=== PATIENT | male | born 1995 | race African-American/Black ===

== ENCOUNTER 2021-07-15 03:20 | Emergency (ER) | payer MEDICAID ==
[~2021-07-15] VITALS: Ht 182.9 cm; Wt 86.2 kg
--- NOTE | 2021-07-15 03:40 | NUR ---
BIB SELF C/O R SHOULDER PAIN S/P SYNCOPAL EPISODE IN AN ELEVATOR. WAS WOKEN UP BY EQUALIZING SAW OPERATOR AND WAS GIVEN A BANANA TO EAT THEN RAN TO THE ER AND STATES HE NOW HAS GENERALIZED ABD PAIN AND N/V. R SHOULDER PAIN IS 8/10 WITH MOVEMENT AND IMPROVES WITH REST TO 4/10. DENIES HITTING HIS HEAD. NO EXTERNAL TRAUMA NOTED. PLACED ON MONITOR VITAL SIGNS STABLE MD WAS AT BEDSIDE FOR EVAL.
[2021-07-15] MEDS ORDERED: ONDANSETRON 4 MG TAB.RAPDIS ONE (03:47)
--- NOTE | 2021-07-15 03:52 | NUR ---
xray at bedside
[2021-07-15] MEDS ORDERED: ONDANSETRON 4 MG TAB.RAPDIS SL ONE (04:00)
[2021-07-15 04:14] LABS: BASOPHILS % (AUTO) 0.4 % (0.0-2.0); HEMATOCRIT 41 % (39-51); LYMPHOCYTES # (AUTO) 2.4 K/uL (0.8-4.8); MEAN CORPUSCULAR HGB CONC 34 g/dl (31.0-36.0); MEAN CORPUSCULAR VOLUME 89 fL (80-96); MONOCYTES # (AUTO) 0.8 K/uL (0.1-1.30); MONOCYTES % (AUTO) 11.1 % (2.0-12.0); NEUTROPHILS # (AUTO) 4.1 K/uL (1.8-8.9); NEUTROPHILS % (AUTO) 55.5 % (43.0-81.0); PLATELET COUNT (AUTO) 245 K/uL (150-450); RED BLOOD CELL COUNT(AUTO) 4.66 MIL/uL (4.5-6.0); WHITE BLOOD COUNT (AUTO) 7.5 K/uL (4.3-11.0)
[2021-07-15 04:22] LABS: CALCIUM, SERUM 8.5 mg/dL (8.5-10.1); CARBON DIOXIDE 29 mmol/L (21-32); CHLORIDE 100 mmol/L (98-107); CREATININE 0.9 mg/dL (0.6-1.3); GLUCOSE 78 mg/dL (74-106); POTASSIUM 4.2 mmol/L (3.5-5.1); SODIUM SERUM 135 mmol/L (136-145); UREA NITROGEN, BLOOD 18 mg/dL (7-18)
[2021-07-15 04:35] LABS: ALANINE AMINOTRANSFERASE 82 U/L (12-78); ALBUMIN 3.8 g/dL (3.4-5.0); ALKALINE PHOSPHATASE 103 U/L (46-116); ASPARTATE AMINOTRANSFERASE 79 U/L (15-37); BILIRUBIN,TOTAL 1.5 mg/dL (0.2-1.0); LIPASE 54 U/L (73-393); TOTAL PROTEIN, SERUM 7.1 g/dL (6.4-8.2)
[2021-07-15] MEDS ORDERED: IBUPROFEN 600 MG TABLET ONE (04:52)
[2021-07-15] MEDS ORDERED: IBUPROFEN 600 MG TABLET PO ONE (05:00)
[2021-07-15] MEDS ORDERED: IBUP-1955 PO (05:09)
--- NOTE | 2021-07-15 05:13 | NUR ---
Patient discharged to home in stable condition. Written and verbal after care instructions given. Patient verbalizes understanding of instruction. Pt ambulated out of ED. VSS.
[2021-07-15 05:15] VITALS: BP 126/64
== END 2021-07-15 05:16 | disposition home or self-care (01) ==
LOC: ER 03:47
DX: S49.81XA Other specified injuries of right shoulder and upper arm, initial encounter (principal); R55 Syncope and collapse; R10.9 Unspecified abdominal pain; R74.01 Elevation of levels of liver transaminase levels; I10 Essential (primary) hypertension; J45.909 Unspecified asthma, uncomplicated; W22.8XXA Striking against or struck by other objects, initial encounter; Y93.89 Activity, other specified; Y92.89 Other specified places as the place of occurrence of the external cause; Y99.8 Other external cause status
CPT/HCPCS: 36415; 73030; 80053; 83690; 83880; 84484; 85025; 93005; 99285; Q0162

== ENCOUNTER 2021-08-20 05:55 | Emergency (ER) | payer MEDICAID ==
[~2021-08-20] VITALS: Ht 180.3 cm; Wt 83.9 kg
[~2021-08-20 05:55] MED LIST: IBUP-1955 PO
--- NOTE | 2021-08-20 06:42 | NUR ---
PT [facility] [address] AND [employer], PLACED ON HOLD. PT FOUND IN FRONT OF POLICE STATION, [place]. PT IS A/OX 4, RR EVEN AND UNLABORED, NO SOB NOTED, PATIENT PLACED ON CARIDAC AND POX MONITOR. SITTER AT BEDSIDE. WILL CONTINUE TO MONITOR.
[2021-08-20 07:41] LABS: BASOPHILS % (AUTO) 0.4 % (0.0-2.0); EOSINOPHILS % (AUTO) 3.3 % (0.0-6.0); HEMATOCRIT 43 % (39-51); HEMOGLOBIN 14.4 g/dL (13.5-17.5); LYMPHOCYTES # (AUTO) 1.4 K/uL (0.8-4.8); LYMPHOCYTES % (AUTO) 20.8 % (20.0-44.0); MEAN CORPUSCULAR HGB CONC 34 g/dl (31.0-36.0); MEAN CORPUSCULAR VOLUME 89 fL (80-96); MONOCYTES # (AUTO) 0.9 K/uL (0.1-1.30); MONOCYTES % (AUTO) 12.5 % (2.0-12.0); NEUTROPHILS # (AUTO) 4.4 K/uL (1.8-8.9); PLATELET COUNT (AUTO) 283 K/uL (150-450); RED BLOOD CELL COUNT(AUTO) 4.78 MIL/uL (4.5-6.0)
[2021-08-20 08:11] LABS: ALANINE AMINOTRANSFERASE 33 U/L (12-78); ALBUMIN 3.7 g/dL (3.4-5.0); ALKALINE PHOSPHATASE 131 U/L (46-116); ASPARTATE AMINOTRANSFERASE 43 U/L (15-37); BILIRUBIN,DIRECT 0.2 mg/dL (0.0-0.2); BILIRUBIN,TOTAL 1.1 mg/dL (0.2-1.0); CALCIUM, SERUM 9.1 mg/dL (8.5-10.1); CARBON DIOXIDE 29 mmol/L (21-32); CHLORIDE 100 mmol/L (98-107); CREATININE 1.1 mg/dL (0.6-1.3); GLUCOSE 78 mg/dL (74-106); POTASSIUM 3.8 mmol/L (3.5-5.1); SODIUM SERUM 138 mmol/L (136-145); TOTAL PROTEIN, SERUM 8.1 g/dL (6.4-8.2); UREA NITROGEN, BLOOD 17 mg/dL (7-18)
[2021-08-20 08:14] LABS: ACETAMINOPHEN 0 ug/ml (10-30); ALCOHOL, BLOOD < 3 mg/dL (0-0)
--- NOTE | 2021-08-20 10:10 | NUR ---
URINE COLLECTED AND SENT TO THE LAB
[2021-08-20 10:50] LABS: BILIRUBIN,URINE NEGATIVE (NEGATIVE); COLOR,URINE DARK YELLOW (YELLOW); LEUKOCYTE ESTERASE ,URINE NEGATIVE (NEGATIVE); NITRITE, URINE NEGATIVE (NEGATIVE); PH,URINE 6.5 (5.0-8.0); PROTEIN,URINE NEGATIVE (NEGATIVE); UGLUCOSE NEGATIVE (NEGATIVE)
[2021-08-20 11:29] LABS: RBC,URINE 0-2 /HPF (0-2); SQUAMOUS EPITHELIAL CELL,UR Rare /HPF (None Seen); WBC,URINE 0-2 /HPF (0-3)
[2021-08-20 11:30] LABS: BACTERIA,URINE None seen /HPF (None Seen)
--- NOTE | 2021-08-20 19:05 | NUR ---
Patient is resting comfortably in bed with eyes closed. Easily aroused. VSS
--- NOTE | 2021-08-20 20:05 | NUR ---
PT SLEEPING, ATTACHED TO MONITOR, NAD
--- NOTE | 2021-08-20 21:32 | NUR ---
CALLED [facility]TAKE FOR F/U. ED WILL CALL ME BACK
--- NOTE | 2021-08-20 22:07 | NUR ---
Patient is resting comfortably in bed with eyes closed. Easily aroused. VSS
--- NOTE | 2021-08-20 22:58 | NUR ---
PT GOT ACCEPTED AT [facility] BY DR TALLEY AND RADHA. NUMBER FOR REPORT: [phone], EXT: [phone]
--- NOTE | 2021-08-20 23:02 | NUR ---
[facility] ETA: 90 MINUTES
--- NOTE | 2021-08-21 01:01 | NUR ---
GAVE REPORT TO DOMINIQUE WATTS FOR TRISH
--- NOTE | 2021-08-21 01:01 | NUR ---
PER [facility], AMBULANCE IS DELAYED
[2021-08-21 02:42] VITALS: BP 141/76
--- NOTE | 2021-08-21 02:50 | NUR ---
PT WAS TRANSFERREDTO [facility] IN STABLE CONDITION,
== END 2021-08-21 02:58 ==
LOC: ER 06:01
DX: R45.851 Suicidal ideations (principal); F15.10 Other stimulant abuse, uncomplicated; J45.909 Unspecified asthma, uncomplicated; I10 Essential (primary) hypertension; Z20.822 Contact with and (suspected) exposure to COVID-19
CPT/HCPCS: 36415; 80048; 80076; 80143; 80307; 80320; 81001; 85025; 87426; 99285; C9803; G0480

== ENCOUNTER 2021-10-01 04:07 | Emergency (ER) | payer MEDICAID ==
[~2021-10-01] VITALS: Ht 180.3 cm; Wt 93.4 kg
--- NOTE | 2021-10-01 05:21 | NUR ---
SALESPERSON HOUSEHOLD APPLIANCES AT BEDSIDE
[2021-10-01 05:38] LABS: BASOPHILS # (AUTO) 0.1 K/uL (0.0-0.2); BASOPHILS % (AUTO) 1.7 % (0.0-2.0); EOSINOPHILS % (AUTO) 2.3 % (0.0-6.0); HEMATOCRIT 42 % (39-51); HEMOGLOBIN 14.5 g/dL (13.5-17.5); LYMPHOCYTES # (AUTO) 1.9 K/uL (0.8-4.8); LYMPHOCYTES % (AUTO) 29.6 % (20.0-44.0); MEAN CORPUSCULAR HGB CONC 34 g/dl (31.0-36.0); MEAN CORPUSCULAR VOLUME 88 fL (80-96); MONOCYTES # (AUTO) 0.6 K/uL (0.1-1.30); MONOCYTES % (AUTO) 9.3 % (2.0-12.0); NEUTROPHILS # (AUTO) 3.6 K/uL (1.8-8.9); NEUTROPHILS % (AUTO) 57.1 % (43.0-81.0); PLATELET COUNT (AUTO) 238 K/uL (150-450); RED BLOOD CELL COUNT(AUTO) 4.82 MIL/uL (4.5-6.0); WHITE BLOOD COUNT (AUTO) 6.4 K/uL (4.3-11.0)
[2021-10-01 05:58] LABS: CALCIUM, SERUM 8.9 mg/dL (8.5-10.1); CARBON DIOXIDE 31 mmol/L (21-32); CHLORIDE 100 mmol/L (98-107); CREATININE 1.1 mg/dL (0.6-1.3); GLUCOSE 84 mg/dL (74-106); POTASSIUM 3.9 mmol/L (3.5-5.1); SODIUM SERUM 137 mmol/L (136-145); UREA NITROGEN, BLOOD 18 mg/dL (7-18)
[2021-10-01 06:12] LABS: ALANINE AMINOTRANSFERASE 51 U/L (12-78); ALKALINE PHOSPHATASE 105 U/L (46-116); ASPARTATE AMINOTRANSFERASE 92 U/L (15-37); BILIRUBIN,DIRECT 0.2 mg/dL (0.0-0.2); TOTAL PROTEIN, SERUM 7.2 g/dL (6.4-8.2)
[2021-10-01 06:14] LABS: ACETAMINOPHEN 0 ug/ml (10-30); ALCOHOL, BLOOD < 3 mg/dL (0-0)
--- NOTE | 2021-10-01 07:30 | NUR ---
PATIENT RESTING COMFORTABLY IN BED, EASILY AROUSABLE
[2021-10-01 07:44] LABS: BILIRUBIN,URINE NEGATIVE (NEGATIVE); COLOR,URINE ORANGE (YELLOW); LEUKOCYTE ESTERASE ,URINE NEGATIVE (NEGATIVE); NITRITE, URINE NEGATIVE (NEGATIVE); PROTEIN,URINE NEGATIVE (NEGATIVE); UGLUCOSE NEGATIVE (NEGATIVE); UROBILINOGEN,URINE 0.2 EU/dL (0.2)
[2021-10-01 07:59] LABS: BACTERIA,URINE None seen /HPF (None Seen); RBC,URINE NONE SEEN /HPF (0-2); WBC,URINE NONE SEEN /HPF (0-3)
[2021-10-01 09:00] VITALS: BP 128/77
--- NOTE | 2021-10-01 09:24 | NUR ---
FAXED CLINICALS TO [facility] INTAKE
--- NOTE | 2021-10-01 10:42 | NUR ---
PT ACCEPTED TO [facility] CALL [phone]
--- NOTE | 2021-10-01 10:43 | NUR ---
ACCEPTED AFTER 1500
== END 2021-10-01 12:00 | disposition left against medical advice (07) ==
LOC: ER 04:08
DX: R45.851 Suicidal ideations (principal); F15.10 Other stimulant abuse, uncomplicated; Z20.822 Contact with and (suspected) exposure to COVID-19; Z53.29 Procedure and treatment not carried out because of patient's decision for other reasons; I10 Essential (primary) hypertension; J45.909 Unspecified asthma, uncomplicated; Z59.00 Homelessness unspecified
CPT/HCPCS: 36415; 80048; 80076; 80143; 80307; 80320; 81001; 85025; 87426; 99285; C9803; G0480

== ENCOUNTER 2022-06-12 06:01 | Emergency (ER) | payer MEDICAID ==
--- NOTE | 2022-06-12 06:15 | NUR ---
called to triage no response
--- NOTE | 2022-06-12 06:35 | NUR ---
called to triage no response
== END 2022-06-12 06:55 | disposition left against medical advice (07) ==
LOC: ER 06:02
DX: Z53.21 Procedure and treatment not carried out due to patient leaving prior to being seen by health care provider (principal)